=== PATIENT | female | born 1955 | race Caucasian/White ===

== ENCOUNTER 2017-01-25 15:16 | Emergency (ER) | payer MEDICARE, OTHER ==
[2017-01-25 15:18] VITALS: BP 150/80; PULSE 85; RESP 20; TEMP 98.5; O2SAT 100
--- NOTE | 2017-01-25 16:43 | PD ---
HPI Chief Complaint: Psychiatric Symptoms Time Seen by Provider: 16:43 Travel History International Travel<30 days: No Contact w/Intl Traveler<30days: No Traveled to known affect area: No History of Present Illness HPI 61-year-old female presents to the emergency Department with complaint of suicidal thoughts for the past 3 days. Reports feeling depressed and sad with lots of crying. Says she has no friends or family. Thought about taking a bottle of pills the other day and that no one would find her if she . History of suicidal attempts 3. Denies visual or auditory hallucinations. 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 Takes oxycodone and fentanyl patch for chronic pain syndrome. Has no emergent medical complaints. Denies fever, chills, nausea, vomiting, chest pain, shortness of breath, abdominal pain, change in urine or stool. Has no other medical complaints. No other modifying factors or associated signs and symptoms. PFSH Social History Tobacco Use: No Review of Systems Except as stated in HPI: all other systems reviewed are Neg Physical Exam Narrative GENERAL: Well-nourished, well-developed female patient, in no acute distress SKIN: Warm and dry. HEAD: Atraumatic. Normocephalic. EYES: Pupils equal and round. ENT: Mucosa pink and moist. NECK: Supple. Trachea midline. CARDIOVASCULAR: Regular rate and rhythm. No murmur appreciated. RESPIRATORY: No accessory muscle use. Clear to auscultation. Breath sounds equal bilaterally. GASTROINTESTINAL: Abdomen soft, non-tender, nondistended. Hepatic and splenic margins not palpable. Bowel sounds are active 4 quadrants. MUSCULOSKELETAL: No obvious deformities. No clubbing. No cyanosis. No edema. BACK: No CVA tenderness. NEUROLOGICAL: Awake and alert. Oriented 3. No obvious cranial nerve deficits. Motor grossly within normal limits. Normal speech. Moves all extremities. 5/5 strength to all extremities. PSYCHIATRIC: No delusional thought processes. No hallucinations. Data Data Last Documented VS Vital Signs Date Time Temp Pulse Resp B/P Pulse Ox O2 Delivery O2 Flow Rate FiO2 01/25/17 15:18 98.5 85 20 150/80 100 Room Air Orders Complete Blood Count With Diff (01/25/17 16:43) Comprehensive Metabolic Panel (01/25/17 16:43) Urinalysis - C+S If Indicated (01/25/17 16:43) Psych Screen (01/25/17 16:43) Drug Screen, Random Urine (01/25/17 16:43) Alcohol (Ethanol) (01/25/17 16:43) Salicylates (Aspirin) (01/25/17 16:43) Tylenol (Acetaminophen) (01/25/17 16:43) MDM Medical Decision Making Medical Screen Exam Complete: Yes Emergency Medical Condition: Yes Medical Record Reviewed: Yes Differential Diagnosis Suicidal ideation, suicidal threat, depression Narrative Course 61-year-old female with suicidal thoughts. Patient presents voluntarily. Physical examination and vital signs are essentially unremarkable. Patient has no medical complaints to report. Psych screen has been ordered. If the laboratory results are unremarkable, the patient will be medically cleared for psychiatric evaluation and disposition. Diagnosis Primary Impression: Encounter for psychological evaluation Condition: Stable Loni Neal January 25, 2017 16:43
[2017-01-25] MEDS ORDERED: CLON2TAB PO (17:29)
[2017-01-25] MEDS ORDERED: ALPR.5 PO (17:29)
[2017-01-25] MEDS ORDERED: LACT10SO PO (17:29)
[2017-01-25] MEDS ORDERED: DULO1CAP3 PO (17:29)
[2017-01-25] MEDS ORDERED: SOMA350T PO (17:29)
[2017-01-25] MEDS ORDERED: CYCL5TAB PO (17:29)
[2017-01-25] MEDS ORDERED: LAMO150T PO (17:29)
[2017-01-25] MEDS ORDERED: TRAZ150T75 PO (17:29)
[2017-01-25] MEDS ORDERED: COLA100C3 PO (17:29)
[2017-01-25] MEDS ORDERED: ATOR40TA16 PO (17:29)
[2017-01-25] MEDS ORDERED: OXYC15TA PO (17:29)
[2017-01-25] MEDS ORDERED: FENT50DI T-DERMAL (17:29)
[2017-01-25 17:33] LABS: BASOPHIL % 0.7 % (0.0-2.0); EOSINOPHIL # 0.1 TH/MM3 (0-0.4); EOSINOPHIL % 2.1 % (0.0-4.0); HEMATOCRIT 39.3 % (35.0-46.0); HEMO FLAGS DIFF FINAL; LYMPH % 19.6 % (9.0-44.0); LYMPHOCYTE # 0.8 TH/MM3 (1.0-4.8); MEAN CELL VOLUME 98.5 FL (80.0-100.0); MEAN CORPUSCULAR HEMOGLOBIN 32.9 PG (27.0-34.0); MEAN CORPUSCULAR HGB CONC 33.4 % (32.0-36.0); MONO % 7.7 % (0.0-8.0); NEUT % 69.9 % (16.0-70.0); PLATELET COUNT 219 TH/MM3 (150-450); RED BLOOD COUNT 3.99 MIL/MM3 (4.00-5.30); RED CELL DISTRIBUTION WIDTH 12.5 % (11.6-17.2); WHITE BLOOD COUNT 4.3 TH/MM3 (4.0-11.0)
[2017-01-25 17:43] LABS: ANION GAP 6 MEQ/L (5-15); AST (GOT) 23 U/L (15-37); BICARBONATE 31.8 MEQ/L (21.0-32.0); BLOOD UREA NITROGEN 9 MG/DL (7-18); CHLORIDE 101 MEQ/L (98-107); GLOMERULAR FILTRATION RATE 80 ML/MIN (>89); POTASSIUM 3.7 MEQ/L (3.5-5.1); SODIUM (NA) 139 MEQ/L (136-145)
[2017-01-25 17:45] LABS: BLOOD, URINE NEG (NEG); COMMENT (UR) CULT NOT INDICATED; CULTURE IF INDICATED CULT NOT INDICATED; GLUCOSE,URINE NEG (NEG); KETONE, URINE NEG (NEG); NITRITE,URINE NEG (NEG); PH, URINE 7.5 (5.0-8.5); SQUAMOUS EPITHELIAL CELL URINE <1 /hpf (0-5); URINE COLOR YELLOW (YELLW/STRAW)
[2017-01-25 17:49] LABS: ACETAMINOPHEN LESS THAN 2.0 MCG/ML (10.0-30.0); ALKALINE PHOSPHATASE 77 U/L (45-117); ALT (GPT) 30 U/L (10-53); TOTAL BILIRUBIN ADULT 0.4 MG/DL (0.2-1.0)
[2017-01-25 17:50] LABS: AMPHETAMINE, URINE NEG (NEG); BARBITURATES, URINE NEG (NEG); COCAINE, URINE NEG (NEG)
[2017-01-25] MEDS ORDERED: IBUPROFEN 600 MG TAB PO ONE (21:15)
--- NOTE | 2017-01-26 00:07 | PD ---
Physical Exam Date Seen by Provider: January 26, 2017 Time Seen by Provider: 00:05 Data Data Last Documented VS Vital Signs Date Time Temp Pulse Resp B/P Pulse Ox O2 Delivery O2 Flow Rate FiO2 01/25/17 15:18 98.5 85 20 150/80 100 Room Air Orders Complete Blood Count With Diff (01/25/17 16:43) Comprehensive Metabolic Panel (01/25/17 16:43) Urinalysis - C+S If Indicated (01/25/17 16:43) Psych Screen (01/25/17 16:43) Drug Screen, Random Urine (01/25/17 16:43) Alcohol (Ethanol) (01/25/17 16:43) Salicylates (Aspirin) (01/25/17 16:43) Tylenol (Acetaminophen) (01/25/17 16:43) Ibuprofen (Motrin) (01/25/17 21:15) Labs Laboratory Tests Test 01/25/17 01/25/17 16:46 16:55 Urine Color YELLOW Urine Turbidity CLEAR Urine pH 7.5 Urine Specific [place] 1.014 Urine Protein NEG mg/dL Urine Glucose (UA) NEG mg/dL Urine Ketones NEG mg/dL Urine Occult Blood NEG Urine Nitrite NEG Urine Bilirubin NEG Urine Urobilinogen LESS THAN 2.0 MG/DL Urine Leukocyte Esterase NEG Urine RBC 4 /hpf Urine WBC LESS THAN 1 /hpf Urine Squamous Epithelial <1 /hpf Cells Microscopic Urinalysis Comment CULT NOT INDICATED Urine Opiates Screen NEG Urine Barbiturates Screen NEG Urine Amphetamines Screen NEG Urine Benzodiazepines Screen POS Urine Cocaine Screen NEG Urine Cannabinoids Screen NEG White Blood Count 4.3 TH/MM3 Red Blood Count 3.99 MIL/MM3 Hemoglobin 13.1 GM/DL Hematocrit 39.3 % Mean Corpuscular Volume 98.5 FL Mean Corpuscular Hemoglobin 32.9 PG Mean Corpuscular Hemoglobin 33.4 % Concent Red Cell Distribution Width 12.5 % Platelet Count 219 TH/MM3 Mean Platelet Volume 8.9 FL Neutrophils (%) (Auto) 69.9 % Lymphocytes (%) (Auto) 19.6 % Monocytes (%) (Auto) 7.7 % Eosinophils (%) (Auto) 2.1 % Basophils (%) (Auto) 0.7 % Neutrophils # (Auto) 3.0 TH/MM3 Lymphocytes # (Auto) 0.8 TH/MM3 Monocytes # (Auto) 0.3 TH/MM3 Eosinophils # (Auto) 0.1 TH/MM3 Basophils # (Auto) 0.0 TH/MM3 CBC Comment DIFF FINAL Differential Comment Sodium Level 139 MEQ/L Potassium Level 3.7 MEQ/L Chloride Level 101 MEQ/L Carbon Dioxide Level 31.8 MEQ/L Anion Gap 6 MEQ/L Blood Urea Nitrogen 9 MG/DL Creatinine 0.74 MG/DL Estimat Glomerular Filtration 80 ML/MIN Rate Random Glucose 100 MG/DL Calcium Level 9.3 MG/DL Total Bilirubin 0.4 MG/DL Aspartate Amino Transf 23 U/L (AST/SGOT) Alanine Aminotransferase 30 U/L (ALT/SGPT) Alkaline Phosphatase 77 U/L Total Protein 7.8 GM/DL Albumin 4.3 GM/DL Salicylates Level LESS THAN 1.7 MG/DL Acetaminophen Level LESS THAN 2.0 MCG/ML Ethyl Alcohol Level LESS THAN 3 MG/DL MDM Medical Record Reviewed: Yes Supervised Visit with JUHI: No Differential Diagnosis MDM: High Differential diagnoses: Schizophrenia, schizoaffective disorder, bipolar, anxiety, depression, adjustment reaction, mood disorder NOS, ODD, depressive disorder NOS, dementia, dementia with agitation, psychosis NOS, substance induced mood disorder, intermittent explosive disorder, Asperger syndrome, infection,electrolyte abnormality, malingering. Narrative Course Mental health screening discussed with the patient. Psychiatric screen ordered. The patient's been seen by the psych screener. They do not believe the patient warrants inpatient management. She is not a candidate for Barraza act. The patient had been seen earlier by the daytime nurse practitioner and had been medically cleared. This is a counter for psychological evaluation. Medically stable for discharge. Diagnosis Primary Impression: Encounter for psychological evaluation Patient Instructions: General Instructions Departure Forms: Tests/Procedures Additional Instruction: Rest. Follow-up the recommendations of the psych screener. Disposition: DISCHARGE HOME Condition: Stable Sincere Adler January 26, 2017 00:06
== END 2017-01-26 00:14 | disposition home or self-care (01) ==
LOC: NEDAMB 15:16
DX: R45.851 Suicidal ideations (principal); F32.9 Major depressive disorder, single episode, unspecified
CPT/HCPCS: 80053; 80307; 81001; 85025; 99284